=== PATIENT | male | born 1940 | race Caucasian/White ===

== ENCOUNTER 2020-11-05 09:43 | Emergency (ER) | payer MEDICARE, OTHER ==
[2020-11-05 11:34] LABS: HEMOGLOBIN 14.8 gm/dl (14.0-17.5); RED BLOOD COUNT 4.82 M/UL (4.20-5.50); WHITE BLOOD COUNT 5.5 K/UL (4.5-11.0)
[2020-11-05 11:52] LABS: BUN/CREATININE RATIO 14 (0-10)
== END 2020-11-05 14:18 | disposition home or self-care (01) ==
LOC: ER1 09:43
PROVIDERS: Family Medicine
DX: R53.1 Weakness (principal); R20.0 Anesthesia of skin; N18.9 Chronic kidney disease, unspecified; R51.9 Headache, unspecified; I48.91 Unspecified atrial fibrillation; Z95.1 Presence of aortocoronary bypass graft; Z79.82 Long term (current) use of aspirin; Z98.890 Other specified postprocedural states; Z88.8 Allergy status to other drugs, medicaments and biological substances
CPT/HCPCS: 36415; 70450; 80053; 81001; 82550; 82553; 83874; 84439; 84443; 84484; 85025; 93005; 99284

== ENCOUNTER → 2021-11-27 | Outpatient (CLI) | payer MEDICARE | LOC: MRI 13:33 | DX: D32.9 Benign neoplasm of meninges, unspecified (principal) | CPT/HCPCS: 36415; 70553; 82565; 84520; A9577 ==

== ENCOUNTER → 2022-02-07 | Outpatient (CLI) | payer OTHER ==
[2022-02-07 12:36] LABS: HEMOGLOBIN 13.4 gm/dl (14.0-17.5); RED BLOOD COUNT 4.45 M/UL (4.20-5.50); WHITE BLOOD COUNT 4.7 K/UL (4.5-11.0)
== END ==
LOC: MRI 10:25
PROVIDERS: Neurological Surgery
DX: D32.0 Benign neoplasm of cerebral meninges (principal)
CPT/HCPCS: 36415; 70553; 82565; 85025; 85652; 86140; A9577